=== PATIENT | female | born 1965 | race Caucasian/White ===

== ENCOUNTER 2021-01-30 10:06 | Emergency (ER) | payer OTHER ==
[~2021-01-30] VITALS: Ht 172.7 cm; Wt 81.6 kg
[~2021-01-30 10:06] MED LIST: CEFTIN500 MG PO; CLARITIN10 MG PO; PROAIR HFA0.09 MG/AC INH; SPIRIVA18 MCG INH; ZITHROMAX Z PA250 MG PO; ZITHROMAX500 MG PO
[2021-01-30 10:33] LABS: BASO % 0.4 % (0.0-1.0); EOS # 0.1 10*3/uL (0.0-0.4); EOS % 1.7 % (1.0-4.0); HEMATOCRIT 43.9 % (37.0-47.0); MEAN CELL VOLUME 97.6 fl (81.0-99.0); MEAN CORPUSCULAR HGB 32.9 pg (27.0-31.0); MEAN CORPUSCULAR HGB CONC 33.7 g/dl (33.0-37.0); MONO # 0.6 10*3/uL (0.1-1.0); MONO % 6.9 % (3.0-9.0); NEUT # 5.7 10*3/uL (2.3-7.9); NEUT % 67.5 % (47.0-73.0); PLATELET COUNT AUTOMATED 222 10*3/uL (130-400); RED CELL DISTRI WIDTH 12.5 % (0-14.5); WHITE BLOOD COUNT 8.5 10*3/uL (4.8-10.8)
[2021-01-30 10:51] LABS: ALBUMIN 4.1 gm/dl (3.1-4.5); BUN 14 mg/dl (7-24); CHLORIDE 107 mmol/L (98-107); CREATININE 0.77 mg/dL (0.55-1.02); SGOT/AST 34 IU/L (3-35); SGPT/ALT 50 U/L (12-78); SODIUM 138 mmol/L (136-145); TOTAL PROTEIN 7.4 gm/dL (6.4-8.2)
[2021-01-30 10:54] LABS: ALKALINE PHOSPHATASE 75 U/L (45-117)
[2021-01-30 10:58] LABS: TROPONIN I < 0.015 ng/ml (<0.045)
[2021-01-30] MEDS ORDERED: PERCOCET 5-3251 EACH PO (13:23)
[2021-01-30] MEDS ORDERED: PREDNISONE10 MG PO (13:23)
== END 2021-01-30 13:28 | disposition home or self-care (01) ==
LOC: ED 10:06
PROVIDERS: Family Medicine
DX: J44.1 Chronic obstructive pulmonary disease with (acute) exacerbation (principal); R05 Cough; F17.200 Nicotine dependence, unspecified, uncomplicated; Z88.2 Allergy status to sulfonamides; Z79.2 Long term (current) use of antibiotics; Z79.899 Other long term (current) drug therapy